=== PATIENT | female | born 1985 ===

== ENCOUNTER → 2016-12-24 | Outpatient (CLI) | payer BC ==
--- NOTE | 2016-12-24 15:08 | DIAGNOSTIC IMAGING REPORT ---
LEFT FINGER(S) MIN 2 VIEWS CLINICAL HISTORY: LEFT 5TH FINGER PAIN/INJURY trauma. Pain. COMPARISON: None. DISCUSSION: Nondisplaced transverse fracture base distal phalanx left fifth finger. Alignment is anatomic. Mild soft tissue edema. IMPRESSION: Nondisplaced transverse fracture base distal phalanx left fifth finger Electronically signed by: Matt Gordon M.D. 12/24/2016 3:05 PM Dictated Date/Time: 12/24/2016 3:05 PM
== END | disposition home or self-care (01) ==
LOC: C.RDSM 14:46
PROVIDERS: ATTEND Physician Assistant
DX: S69.90XA Unspecified injury of unspecified wrist, hand and finger(s), initial encounter (principal); X58.XXXA Exposure to other specified factors, initial encounter